=== PATIENT | female | born 1990 | race Caucasian/White ===

== ENCOUNTER 2018-02-01 00:51 | Inpatient (IN) | payer MEDICAID ==
[~2018-02-01] VITALS: Ht 165.1 cm; Wt 77.5 kg
[2018-02-01] MEDS ORDERED: BETAMETHASONE 6 MG/ML, 5ML IM STA (01:58)
[2018-02-01] MEDS ORDERED: AZITHROMYCIN 500 MG in SODIUM CHLORIDE 0.9% 250 ML IV ONE (01:58)
[2018-02-01] MEDS ORDERED: AMPICILLIN 2 GM in SODIUM CHLORIDE 0.9% 100 ML IV STA (01:58)
[2018-02-01] MEDS: OXYTOCIN 30U/ 0.9% NaCL 500ML 500 ML IV SCH ×3 (02:03→22:03)
[2018-02-01] MEDS ORDERED: METOCLOPRAMIDE 5 MG/ML, 2ML ONE (02:09)
[2018-02-01] MEDS ORDERED: SODIUM CITRATE/CITRIC ACID 30 ML UDC ONE (02:09)
[2018-02-01] MEDS ORDERED: BETAMETHASONE 6 MG/ML, 5ML IM ONE (02:09)
[2018-02-01] MEDS ORDERED: NEWBORN KIT ONE (02:27)
[2018-02-01] MEDS ORDERED: ONDANSETRON 4 MG TABLET ONE ×3 (02:29→18:07)
[2018-02-01] MEDS ORDERED: SODIUM CITRATE/CITRIC ACID 30 ML UDC PO ONE (02:30)
[2018-02-01] MEDS ORDERED: LACTATED RINGERS 1,000 ML IVBOLUS ONE ×2 (02:30)
[2018-02-01] MEDS ORDERED: ONDANSETRON 2MG/ML, 2ML IVPush ONE (02:30)
[2018-02-01] MEDS ORDERED: METOCLOPRAMIDE 5 MG/ML, 2ML IV ONE (02:30)
[2018-02-01 02:44] LABS: BASOPHILS # (AUTO) 0.06 x10^3/uL (0-0.1); BASOPHILS % (AUTO) 1 % (0-1); EOSINOPHILS # (AUTO) 0.34 x10^3/uL (0-0.4); EOSINOPHILS % (AUTO) 3 % (1-7); LYMPHOCYTES # (AUTO) 2.11 x10^3/uL (1-3.4); LYMPHOCYTES % (AUTO) 16 % (22-44); MD NO; MEAN CORPUSCULAR HEMOGLOBIN 31.5 pg (27.0-34.8); MEAN CORPUSCULAR HGB CONC 33.9 g/dL (32.4-35.8); MEAN CORPUSCULAR VOLUME 92.9 fL (80-100); MEAN PLATELET VOLUME 8.4 fL (7.4-10.4); MONOCYTES # (AUTO) 0.88 x10^3/uL (0.2-0.8); MONOCYTES % (AUTO) 7 % (2-9); NEUTROPHILS # (AUTO) 9.49 x10^3/uL (1.8-6.8); NEUTROPHILS % (AUTO) 74 % (42-75); PLATELET COUNT 340 x10^3/uL (130-400); RED BLOOD COUNT 4.07 x10^6/uL (3.82-5.3); RED CELL DISTRIBUTION WIDTH 12.7 % (9.6-15.2)
[2018-02-01] MEDS ORDERED: ONDANSETRON ODT 4 MG PO ONE (03:00)
[2018-02-01] MEDS ORDERED: MAGNESIUM SULF. PMX 20GM/500ML 500 ML IV ONE ×3 (03:46→21:26)
[2018-02-01] MEDS: MAGNESIUM SULF. PMX 20GM/500ML 500 ML IV SCH ×3 (03:52→21:32)
[2018-02-01] MEDS ORDERED: MAGNESIUM SULFATE PMX 4GM/100M 100 ML IVPB ONE (04:00)
[2018-02-01] MEDS: LACTATED RINGERS 1,000 ML IV SCH (05:28)
[2018-02-01 07:49] VITALS: BP 100/54
[2018-02-01] MEDS ORDERED: AMPICILLIN 2 GM in SODIUM CHLORIDE 0.9% 100 ML IV SCH (08:00)
[2018-02-01] MEDS: AMPICILLIN 2 GM in SODIUM CHLORIDE 0.9% 100 ML IV SCH ×4 (08:15→23:00)
[2018-02-01] MEDS: ONDANSETRON ODT 4 MG PO PRN ×2 (08:17→18:08)
[2018-02-01] MEDS: PLEASE ENTER HEIGHT AND WEIGHT MC SCH ×4 (08:30→18:00)
[2018-02-01 12:05] VITALS: BP 108/60
[2018-02-01] MEDS ORDERED: BISACODYL 10 MG SUPP PR PRN (18:00)
[2018-02-01] MEDS ORDERED: DOCUSATE 100 MG CAPSULE ONE (18:02)
[2018-02-01] MEDS: DOCUSATE 100 MG CAPSULE PO SCH (18:06)
[2018-02-02] MEDS: PLEASE ENTER HEIGHT AND WEIGHT MC SCH ×8 (00:30→18:00)
[2018-02-02] MEDS ORDERED: AZITHROMYCIN 500 MG in SODIUM CHLORIDE 0.9% 250 ML IV SCH (02:00)
[2018-02-02] MEDS: LACTATED RINGERS 1,000 ML IV SCH ×6 (02:03→19:27)
[2018-02-02] MEDS ORDERED: ONDANSETRON 4 MG TABLET ONE (02:29)
[2018-02-02 07:30] VITALS: BP 112/67
[2018-02-02] MEDS: OXYTOCIN 30U/ 0.9% NaCL 500ML 500 ML IV SCH ×3 (08:03→18:03)
[2018-02-02] MEDS: DOCUSATE 100 MG CAPSULE PO SCH ×2 (09:00→20:57)
[2018-02-02] MEDS ORDERED: MAGNESIUM SULF. PMX 20GM/500ML 500 ML IV ONE (09:05)
[2018-02-02] MEDS: AMPICILLIN 2 GM in SODIUM CHLORIDE 0.9% 100 ML IV SCH ×3 (09:28→17:00)
[2018-02-02] MEDS ORDERED: NEWBORN KIT ONE (12:12)
[2018-02-02] MEDS ORDERED: OXYTOCIN 30U/ 0.9% NaCL 500ML 500 ML ONE (16:27)
[2018-02-02] MEDS ORDERED: METOCLOPRAMIDE 5 MG/ML, 2ML ONE ×2 (16:27→17:11)
[2018-02-02] MEDS ORDERED: OXYTOCIN 10 UNITS/ML, 1ML ONE ×2 (16:53→17:11)
[2018-02-02] MEDS ORDERED: CEFAZOLIN 1,000 MG ONE (16:53)
[2018-02-02] MEDS ORDERED: DEXAMETHASONE 4 MG/ML, 1ML ONE (16:53)
[2018-02-02] MEDS ORDERED: PHENYLEPHRINE 10 MG/ML ONE (16:53)
[2018-02-02] MEDS ORDERED: FENTANYL PF 100 MCG/2ML ONE (16:53)
[2018-02-02] MEDS ORDERED: EPHEDRINE 50 MG/ML, 1ML ONE (16:53)
[2018-02-02] MEDS ORDERED: KETOROLAC 30 MG/1 ML ONE ×2 (16:53→19:10)
[2018-02-02] MEDS ORDERED: ONDANSETRON 2MG/ML, 2ML ONE ×2 (16:53→17:11)
[2018-02-02] MEDS ORDERED: BUPIVACAINE/PF 0.5% ONE (16:54)
[2018-02-02] MEDS ORDERED: OXYcodone 5 MG/5 ML ORAL.SOL UDC PO PRN (17:00)
[2018-02-02] MEDS ORDERED: LABETALOL 5MG/ML, 20ML IV PRN (17:00)
[2018-02-02] MEDS ORDERED: hydrALAzine 20 MG/ML, 1ML IV PRN (17:00)
[2018-02-02] MEDS ORDERED: FENTANYL PF 100 MCG/2ML IV PRN (17:00)
[2018-02-02] MEDS ORDERED: PROMETHAZINE 25 MG/ML, 1ML IV PRN (17:00)
[2018-02-02] MEDS ORDERED: ONDANSETRON 2MG/ML, 2ML IVPush PRN (17:00)
[2018-02-02] MEDS ORDERED: HYDROcodone/APAP 7.5-325MG/15ML UDC PO PRN (17:00)
[2018-02-02] MEDS ORDERED: EPHEDRINE 50 MG/ML, 1ML IVPush PRN (17:00)
[2018-02-02] MEDS ORDERED: MEPERIDINE/PF 25MG/0.5ML IVPush PRN (17:00)
[2018-02-02] MEDS ORDERED: HYDROmorphone 1 MG/ML, 1ML IV PRN (17:00)
[2018-02-02] MEDS ORDERED: MIDAZOLAM 1 MG/ML, 2ML IV PRN (17:00)
[2018-02-02] MEDS ORDERED: SODIUM CITRATE/CITRIC ACID 30 ML UDC ONE (17:11)
[2018-02-02] MEDS ORDERED: LACTATED RINGERS 1,000 ML IV SCH (17:14)
[2018-02-02] MEDS ORDERED: METHYLERGONOVINE 0.2 MG/ML IM PRN (17:30)
[2018-02-02] MEDS ORDERED: ONDANSETRON 2MG/ML, 2ML IV PRN (17:30)
[2018-02-02] MEDS ORDERED: MISOPROSTOL 200 MCG TABLET PR PRN (17:30)
[2018-02-02] MEDS ORDERED: KETOROLAC 30 MG/1 ML IV SCH (17:30)
[2018-02-02] MEDS ORDERED: ACETAMINOPHEN 325 MG TABLET PO PRN (17:30)
[2018-02-02] MEDS ORDERED: CARBOPROST TROMETHAMINE 250 MCG/ML, 1ML IM PRN (17:30)
[2018-02-02] MEDS ORDERED: METOCLOPRAMIDE 5 MG/ML, 2ML IV PRN (17:30)
[2018-02-02] MEDS ORDERED: OXYcodone/APAP 5/325MG TABLET PO PRN (17:30)
[2018-02-02] MEDS ORDERED: morphine SULFATE 10 MG/ML, 1ML IVPush PRN ×2 (17:30)
[2018-02-02 20:40] VITALS: BP 123/72
[2018-02-02] MEDS: OXYcodone/APAP 5/325MG TABLET PO PRN (20:56)
[2018-02-02] MEDS: KETOROLAC 30 MG/1 ML IV SCH (23:20)
[2018-02-02 23:34] VITALS: BP 105/62
[2018-02-03] MEDS: OXYcodone/APAP 5/325MG TABLET PO PRN ×2 (01:30→05:44)
[2018-02-03] MEDS: OXYTOCIN 30U/ 0.9% NaCL 500ML 500 ML IV SCH (03:14)
[2018-02-03] MEDS: LACTATED RINGERS 1,000 ML IV SCH (03:14)
[2018-02-03] MEDS ORDERED: MAGNESIUM SULF. PMX 20GM/500ML 500 ML IV SCH (03:45)
[2018-02-03 04:15] VITALS: BP 113/70
[2018-02-03 05:17] LABS: BASOPHILS # (AUTO) 0.02 x10^3/uL (0-0.1); BASOPHILS % (AUTO) 0 % (0-1); EOSINOPHILS % (AUTO) 0 % (1-7); LYMPHOCYTES # (AUTO) 1.29 x10^3/uL (1-3.4); LYMPHOCYTES % (AUTO) 9 % (22-44); MD NO; MEAN CORPUSCULAR HEMOGLOBIN 32.2 pg (27.0-34.8); MEAN CORPUSCULAR HGB CONC 34.5 g/dL (32.4-35.8); MEAN CORPUSCULAR VOLUME 93.1 fL (80-100); MEAN PLATELET VOLUME 8.5 fL (7.4-10.4); MONOCYTES # (AUTO) 0.54 x10^3/uL (0.2-0.8); MONOCYTES % (AUTO) 4 % (2-9); NEUTROPHILS % (AUTO) 87 % (42-75); PLATELET COUNT 274 x10^3/uL (130-400); RED BLOOD COUNT 3.39 x10^6/uL (3.82-5.3); RED CELL DISTRIBUTION WIDTH 12.9 % (9.6-15.2)
[2018-02-03] MEDS: KETOROLAC 30 MG/1 ML IV SCH ×3 (05:44→17:43)
[2018-02-03 07:00] VITALS: BP 101/51
[2018-02-03] MEDS: DOCUSATE 100 MG CAPSULE PO PRN (08:10)
[2018-02-03] MEDS: PRENATAL VIT/IRON/FA 1 EACH TABLET PO SCH (08:10)
[2018-02-03] MEDS: OXYcodone IR 5MG TABLET PO PRN ×4 (09:48→22:26)
[2018-02-03 12:13] VITALS: BP 119/73
[2018-02-03 18:55] VITALS: BP 107/65
[2018-02-04] MEDS: KETOROLAC 30 MG/1 ML IV SCH ×4 (00:11→17:30)
[2018-02-04] MEDS: OXYcodone IR 5MG TABLET PO PRN ×5 (03:26→21:06)
[2018-02-04 06:45] VITALS: BP 117/77
[2018-02-04] MEDS: PRENATAL VIT/IRON/FA 1 EACH TABLET PO SCH (09:00)
[2018-02-04] MEDS ORDERED: OXYcodone IR 5MG TABLET ONE (12:20)
[2018-02-04] MEDS: IBUPROFEN 600 MG TABLET PO PRN (18:32)
[2018-02-04] MEDS: DOCUSATE 100 MG CAPSULE PO PRN (21:05)
[2018-02-04 21:10] VITALS: BP 116/70
[2018-02-05] MEDS: IBUPROFEN 600 MG TABLET PO PRN ×4 (00:27→19:24)
[2018-02-05] MEDS: OXYcodone IR 5MG TABLET PO PRN ×5 (01:14→22:05)
[2018-02-05] MEDS: PRENATAL VIT/IRON/FA 1 EACH TABLET PO SCH (07:34)
[2018-02-05] MEDS: DOCUSATE 100 MG CAPSULE PO PRN ×2 (07:34→19:24)
[2018-02-05 08:25] VITALS: BP 110/73
[2018-02-05 19:50] VITALS: BP 130/75
[2018-02-05] MEDS ORDERED: DIPH,PERTUSS(ACELL),TET VAC/PF NC IM-VACC ONE (22:10)
[2018-02-06] MEDS: IBUPROFEN 600 MG TABLET PO PRN ×3 (02:35→17:58)
[2018-02-06] MEDS: OXYcodone IR 5MG TABLET PO PRN ×4 (02:36→17:57)
[2018-02-06 06:45] VITALS: BP 105/68
[2018-02-06] MEDS: DOCUSATE 100 MG CAPSULE PO PRN (08:22)
[2018-02-06] MEDS: PRENATAL VIT/IRON/FA 1 EACH TABLET PO SCH (08:22)
[2018-02-06] MEDS ORDERED: IBUP-1222 PO (11:00)
[2018-02-06] MEDS ORDERED: DOCU-131 PO (11:00)
[2018-02-06] MEDS ORDERED: OXYC-307 PO (11:02)
== END 2018-02-06 22:30 | disposition home or self-care (01) | DRG 765 ==
LOC: LDOP 00:51 → LDIP 01:48 → 2NW 02-02 20:38
PROVIDERS: ADMIT Obstetrics & Gynecology; ATTEND Obstetrics & Gynecology
PROC: 10D00Z1 Extraction of Products of Conception, Low, Open Approach (ICD-10-PCS; principal; 2018-02-02)
DX: O60.14X0 Preterm labor third trimester with preterm delivery third trimester, not applicable or unspecified (principal); O26.873 Cervical shortening, third trimester; O41.03X0 Oligohydramnios, third trimester, not applicable or unspecified; O36.5930 Maternal care for other known or suspected poor fetal growth, third trimester, not applicable or unspecified; Z37.0 Single live birth; O32.8XX0 Maternal care for other malpresentation of fetus, not applicable or unspecified; O34.03 Maternal care for unspecified congenital malformation of uterus, third trimester; O42.913 Preterm premature rupture of membranes, unspecified as to length of time between rupture and onset of labor, third trimester; Z3A.34 34 weeks gestation of pregnancy; Q51.3 Bicornate uterus
CPT/HCPCS: 36415; 76815; 76820; 82803; 83735; 85025; 86850; 86870; 86900; 86922; 86923; 87070; 87075; 87205; 88307; 89060; 90715; J0290; J0456; J0690; J0702; J1100; J1885; J2405; J3010; J3490; Q0162; J2370; J2590; J2765; J3475; J7050; J7120; Q0114